=== PATIENT | male | born 1955 | race Caucasian/White ===

== ENCOUNTER → 2022-04-15 | Outpatient (CLI) | payer MEDICARE, OTHER ==
[2022-04-15 18:50] LABS: Appearance, Urine Clear (Clear); Bilirubin, Urine Neg (Neg); Blood, Urine Neg (Neg); Color, Urine Yellow (P-Yellow); Glucose Qualitative, Urine Neg (Neg); Ketones, Urine Neg (Neg); Leukocyte Esterase, Urine 1+ (Neg); Nitrite, Urine Neg (Neg); Protein, Urine 1+ (Neg); Urobilinogen, Urine 2+ (Normal); pH, Urine 6.5 (5.0-8.0)
[2022-04-15 18:59] LABS: Bacteria Few /hpf; Red Blood Cells, Urine 0-2 /hpf (0-2); Squamous Epithelial Cells Rare /hpf (Few)
== END ==
LOC: LAB SHORT 12:00 → EDBD 12:00 → LAB 12:00
PROVIDERS: Physician Assistant
DX: N39.0 Urinary tract infection, site not specified (principal)
CPT/HCPCS: 81001; 87086

== ENCOUNTER → 2022-05-23 | Outpatient (CLI) | payer MEDICARE, OTHER ==
[2022-05-24 20:11] LABS: Source, Urine Clean Catch
[2022-05-24 20:26] LABS: Appearance, Urine Clear (Clear); Bilirubin, Urine Neg (Neg); Blood, Urine Neg (Neg); Color, Urine Yellow (P-Yellow); Glucose Qualitative, Urine Neg (Neg); Ketones, Urine Neg (Neg); Leukocyte Esterase, Urine Neg (Neg); Nitrite, Urine Neg (Neg); Protein, Urine Neg (Neg); Urobilinogen, Urine 2+ (Normal)
== END | disposition home or self-care (01) ==
LOC: LAB SHORT 18:40
PROVIDERS: Physician Assistant
DX: N39.0 Urinary tract infection, site not specified (principal)
CPT/HCPCS: 81003

== ENCOUNTER → 2023-05-31 | Outpatient (CLI) | payer MEDICARE, OTHER ==
[2023-05-31 20:55] LABS: Alanine Aminotransfer (ALT/SGP 41 U/L (12-78); Albumin/Globulin Ratio 0.8 (0.8-1.8); Alk Phos 79 U/L (50-136); Anion Gap 4 mmol/L (6-16); Aspartate Aminotrans (AST/SGOT 25 U/L (12-37); Bilirubin, Total 0.4 mg/dL (0.1-1.0); Blood Urea Nitrogen 22 mg/dL (8-24); Bun/Creatinine Ratio 23.2 (12.0-20.0); CHOL/HDL RATIO 3.7; CO2, Blood 30 mmol/L (21-32); Calcium, Blood 8.9 mg/dL (8.5-10.1); Chloride, Blood 108 mmol/L (98-108); Cholesterol 154 mg/dL (50-200); Creatinine, Blood 0.95 mg/dL (0.60-1.20); Globulin, Blood 3.9 g/dL (2.2-4.0); Glomerular Filtration Rate 86 (60-); Glucose, Blood 83 mg/dL (70-99); HDL Cholesterol 42 mg/dL (>39); LDL/HDL RATIO 1.7; Low Density Lipoprotein Chol 70 mg/dL (0-110); Potassium, Blood 4.3 mmol/L (3.5-5.5); Sodium, Blood 142 mmol/L (136-145); Total Protein, Blood 6.9 g/dL (6.4-8.2); Triglycerides 208 mg/dL (30-160); Valproic Acid 47.5 ug/mL (50.0-100.0); Very Low Density Lipoprot Chol 41 mg/dL (6-32)
[2023-06-04 11:22] LABS: HEMOGLOBIN A1C 6.4 % (4.8-5.6)
== END | disposition home or self-care (01) ==
LOC: LAB 08:54 → LAB SHORT 08:54
PROVIDERS: Physician Assistant
DX: E78.2 Mixed hyperlipidemia (principal); R73.03 Prediabetes; Z79.899 Other long term (current) drug therapy; Z85.46 Personal history of malignant neoplasm of prostate
CPT/HCPCS: 80053; 80061; 80164; 83036; 84153

== ENCOUNTER → 2023-07-09 | Outpatient (CLI) | payer MEDICARE ==
[~2023-07-09] MED LIST: ACET325 PO; Amlodipine Bes2.5 MG PO; BISA10S PR; DIVA250EC PO; LACT10SY PO; LISI20 PO; LORA.5 PO; METO25ER PO; QUET25 PO; SENNA LAXATIVE8.6 MG PO; SENNA-PLUS TAB1 EACH PO; SEROQUEL25 MG PO; SEROQUEL50 MG PO; XARELTO20 M1 PO; XARELTO20 MG PO; ZOLOFT25 MG PO
[2023-07-11 11:31] LABS: Stool Occult Bld Immuno 1 Positive (NEGATIVE)
== END ==
LOC: LAB 18:00 → LAB SHORT 18:00
PROVIDERS: Physician Assistant
DX: Z12.11 Encounter for screening for malignant neoplasm of colon (principal)
CPT/HCPCS: G0328

== ENCOUNTER → 2023-12-02 | Outpatient (CLI) | payer MEDICARE, OTHER ==
[2023-12-02 14:44] LABS: Source, Urine Clean Catch
[2023-12-02 14:59] LABS: Appearance, Urine Turbid (Clear); Bilirubin, Urine Neg (Neg); Blood, Urine 5+ (Neg); Color, Urine Yellow (P-Yellow); Glucose Qualitative, Urine Neg (Neg); Ketones, Urine Neg (Neg); Leukocyte Esterase, Urine 3+ (Neg); Nitrite, Urine Pos (Neg); Protein, Urine 3+ (Neg); Urobilinogen, Urine NORM (Normal)
[2023-12-02 15:34] LABS: Bacteria Many /hpf; Mucus Light (0-Heavy); Squamous Epithelial Cells Rare /hpf (Few); White Blood Cells, Urine TNTC /hpf (0-5)
== END ==
LOC: LAB 09:20 → LAB SHORT 09:20
PROVIDERS: Physician Assistant
DX: N39.0 Urinary tract infection, site not specified (principal)
CPT/HCPCS: 81001; 87077; 87086; 87186

== ENCOUNTER 2025-02-02 09:07 | Observation (INO) | payer MEDICARE, OTHER ==
[~2025-02-02] VITALS: Ht 182.9 cm; Wt 108.6 kg
[2025-02-02] MEDS ORDERED: Diltiazem HCl 5 MG / ML 5ML Vial IV ONE (09:15)
[2025-02-02 09:17] LABS: pH Blood Venous 7.46 (7.34-7.37)
[2025-02-02] MEDS ORDERED: Midazolam HCL 1 MG/ML 5MLVIAL IV ONE (09:25)
[2025-02-02 09:28] LABS: BASOPHILS ABSOLUTE AUTO 0.11 K/mm3 (0.00-0.23); BASOPHILS PERCENT AUTO 1 % (0-2); EOSINOPHILS ABSOLUTE AUTO 0.10 K/mm3 (0.00-0.68); EOSINOPHILS PERCENT AUTO 1 % (0-6); Hematocrit 45.3 % (37.0-53.0); Hemoglobin 14.8 g/dL (13.5-17.5); IMMATURE GRAN ABSOLUTE AUTO 0.09 K/mm3 (0.00-0.10); IMMATURE GRAN PERCENT AUTO 1 % (0-1); LYMPHOCYTES ABSOLUTE AUTO 2.47 K/mm3 (0.84-5.20); LYMPHOCYTES PERCENT AUTO 18 % (21-46); MONOCYTES ABSOLUTE AUTO 1.59 K/mm3 (0.16-1.47); MONOCYTES PERCENT AUTO 11 % (4-13); Mean Corpuscular HGB Conc 32.7 g/dL (31.5-36.5); Mean Corpuscular Volume 92 fL (80-100); NEUTROPHILS ABSOLUTE AUTO 9.65 K/mm3 (1.96-9.15); NEUTROPHILS PERCENT AUTO 69 % (41-73); NRBC ABSOLUTE 0.00 K/mm3 (0.00-0.02); NRBC Auto 0.0 /100 WBC (0.0-0.2); Platelet Count 276 K/mm3 (150-400); RDW Coefficient Variation 14.2 % (11.7-14.2); RDW Standard Deviation 48.4 fL (35.1-46.3)
[2025-02-02] MEDS ORDERED: Morphine Sulfate 20 MG/1ML 1 ML Oral Syringe PO ONE (09:50)
[2025-02-02 09:52] LABS: Alanine Aminotransfer (ALT/SGP 62 U/L (12-78); Albumin, Blood 2.6 g/dL (3.4-5.0); Albumin/Globulin Ratio 0.5 (0.8-1.8); Anion Gap 14 mmol/L (3-11); Aspartate Aminotrans (AST/SGOT 43 U/L (12-37); Bilirubin, Total 0.7 mg/dL (0.1-1.0); Blood Urea Nitrogen 34 mg/dL (8-24); CO2, Blood 23 mmol/L (21-32); Calcium, Blood 8.8 mg/dL (8.5-10.1); Chloride, Blood 113 mmol/L (98-108); Creatinine, Blood 1.81 mg/dL (0.60-1.20); Ethanol (Alcohol), Blood, Med <3 mg/dL; Globulin, Blood 5.4 g/dL (2.2-4.0); Glucose, Blood 160 mg/dL (70-99); Potassium, Blood 3.6 mmol/L (3.5-5.5); Sodium, Blood 146 mmol/L (136-145); Total Protein, Blood 8.0 g/dL (6.4-8.2)
[2025-02-02] MEDS ORDERED: ACET325 PO (09:57)
[2025-02-02] MEDS ORDERED: HYDCHL25 PO (09:58)
[2025-02-02] MEDS ORDERED: FURO40 PO (09:58)
[2025-02-02] MEDS ORDERED: ATOR40TA PO (09:58)
[2025-02-02] MEDS ORDERED: DOCU100 PO (09:58)
[2025-02-02] MEDS ORDERED: LOSA50 PO (09:59)
[2025-02-02] MEDS ORDERED: PARO10 PO (09:59)
[2025-02-02] MEDS ORDERED: POTA10T PO (09:59)
[2025-02-02] MEDS ORDERED: Ondansetron 4 MG SoluTab MM PRN (11:35)
[2025-02-02] MEDS ORDERED: LORazepam Conc 2 MG/ML - 1ML UDC PO PRN (11:35)
[2025-02-02] MEDS ORDERED: Morphine Sulfate 20 MG/1ML 1 ML Oral Syringe PO PRN (11:35)
[2025-02-02 12:15] VITALS: BP 116/84
[2025-02-02] MEDS ORDERED: QUET25 PO ×2 (13:51→13:54)
[2025-02-02] MEDS ORDERED: MIRALAX17 GM PO (13:52)
[2025-02-02] MEDS ORDERED: NYAMYC15 G1 TOP (13:52)
[2025-02-02] MEDS ORDERED: ONDA4ODT MM (13:53)
[2025-02-02] MEDS ORDERED: BENZ100A PO (13:53)
[2025-02-02] MEDS ORDERED: Atropine Sulfate 1% Opth Soln 2ML BTL SL PRN (14:45)
--- NOTE | 2025-02-02 17:14 | NUR ---
SHIFT SUMMARY AOX1/2, ONLY KNOWS NAME AND SOMETIMES , PT BELIEVES TO BE AT [facility] STILL. ON COMFORT CARE MEASURES. PT ATTEMPTED TO TAKE OUT IV, RN AND TILE TRIMMER HAD TO INTERVENE, PT RESISTED A BIT. MEDICATED WITH ROXANOL AFTER TO ASSIST PT TO KEEP CALM. NO OUTPUT SINCE BEFORE IN ED. SUPPOSED TO GO BACK TO [facility] ON HOSPICE. UNABLE TO GIVE PO MEDICATION DUE TO ASPIRATION RISK. ON 10L O2 BY NON REBREATHER. BED IN LOWEST POSITION, CALL LIGHT WITHIN REACH.
--- NOTE | 2025-02-03 06:13 | NUR ---
SHIFT SUMMARY: Pt is admitted for toxic metabolic ENC. in and out of being alert through the night but not really about to make needs known. Only answers yes to every question. ADLs have been 1-2 depending on activity but did not get out of bed. No SX of pain or discomfort noted by staff. On 10L non rebreather mask for O2. does have apneic episodes when resting.
--- NOTE | 2025-02-03 08:51 | NUR ---
NOTE PALLIATIVE CARE IN ROOM FOR ASSESSMENT AT 0830. NIGHT RN REPORTED "PT UNSAFE TO SWALLOW." HELD MORNING ORAL MEDS. PT HAS NON REBREATHER ON 10L OF O2. PT REPOSITIONED. PT HAS TACHYPNIC RESPIRATIONS, GAVE ROXANOL. PT GURGLY. THIS RN GAVE ATROPINE DROPS.
--- NOTE | 2025-02-03 09:00 | NUR ---
EOL SYMPTOM MGMT PER PRIMARY RN REQUEST. AUDIBLE SECREATIONS NOTED FROM 5 FT AWAY. ON SUPPLEMENTAL O2 VIA NRBM. RN AND RT TO TITRATE O2 TO NC. NEW ORDERS OBTAINED FOR COMFORT MEASURES PER PROVIDER. ORDERS PLACED ACCORDINGLY.
[2025-02-03] MEDS ORDERED: Morphine Sulfate 20 MG/1ML 1 ML Oral Syringe PO PRN (09:25)
--- NOTE | 2025-02-03 11:29 | NUR ---
NOTE NIGHT RN REPORTED PT CAME UP FROM ER ON 10L O2 VIA NON REBREATHER. THIS RN CONSULTED RESPIRATORY THERAPY DUE TO SUPERVISOR FELLING BUCKING STATED "PT CAN'T BE TRANSFERED TO HOSPICE CARE WITH NON REBREATHER O2." PT ON COMFORT CARE. RESPIRATORY CARE TITRATED PT ON 6L OF HIGH FLOW N/C W HUMIDIFIER.
[2025-02-03] MEDS ORDERED: ACEPHEN PR (11:46)
--- NOTE | 2025-02-03 15:09 | NUR ---
DISHCHARGE NOTE PT ON COMFORT CARE. PT UNRESPONSIVE BUT OPENS EYES. GAVE REPORT TO RN AT [facility], NOTED PT HAS MELENDEZ AND PATCH FOR SECRETIONS BEHIND L EAR. PT MEDICATED WITH ROXANOL TODAY, ROXANOL IMPROVED AIRHUNGER AND GENERALIZED PAIN. PALLIATIVE CARE INVOLVED. CORRECTIONS COUNSELOR INVOLVED. PT DISCHARGED HOME WITH [facility] BACK TO [facility]. PT ON 6L HIGH FLOW O2. FACE SHEET AND DISCHARGE INSTRUCTIONS SENT WITH TRANSPORT. TRANSPORT CAME TO [employer] [facility] PT BY [facility] AT 1500.
== END 2025-02-03 15:12 | disposition hospice, home (50) ==
LOC: ER 09:07 → MEDS 09:08
PROVIDERS: Student in an Organized Health Care Education/Training Program; ADMIT Internal Medicine
DX: G92.8 Other toxic encephalopathy (principal); Z51.5 Encounter for palliative care; J96.01 Acute respiratory failure with hypoxia; I46.9 Cardiac arrest, cause unspecified; F01.50 Vascular dementia, unspecified severity, without behavioral disturbance, psychotic disturbance, mood disturbance, and anxiety; I48.91 Unspecified atrial fibrillation; I10 Essential (primary) hypertension; F43.10 Post-traumatic stress disorder, unspecified; Z66 Do not resuscitate; Z79.899 Other long term (current) drug therapy; Z79.01 Long term (current) use of anticoagulants; Z86.73 Personal history of transient ischemic attack (TIA), and cerebral infarction without residual deficits
CPT/HCPCS: 51702; 70450; 71045; 80053; 80320; 82803; 83880; 84484; 85025; 93005; 93010; 96374; 96375; 99285-25; A9270; G0378; J2250